=== PATIENT | male | born 1975 ===

== ENCOUNTER 2016-07-11 11:52 | Emergency (ER) | payer SELFPAY ==
--- NOTE | 2016-07-30 15:51 | ER ---
ADMIT: 07/11/2016 RM/LOC: ER [facility] MR#: [id number] [place], [place] [id number] VAISHALI MAYNARD [address] [place] [address] Emergency Room Report SEX: M AGE: 41 : 1975 DATE: 07/11/2016 ADDENDUM: This patient was working outside, he leaned against a wooden fence and a large splinter entered his right forearm. On physical exam, he does have a splinter that is in his right forearm that is approximately 4 cm in length. I infiltrated around the area with bupivacaine with epi and was able to pull it out making a small incision with an 11 blade. I did write a prescription for Keflex and tramadol and I did irrigate it out. He is current on his tetanus shot. DIAGNOSIS: Splinter in his right arm. LAURA Lilly / Pedro Luis Luciano MD / modl JOB #: [id number] CC: Pedro Luis Luciano MD, Attending Physician Richi Cage MD, Family Physician
== END 2016-07-11 12:55 | disposition home or self-care (01) ==
LOC: ER 11:52
PROC: 0HCDXZZ Extirpation of Matter from Right Lower Arm Skin, External Approach (ICD-10-PCS; principal; 2016-07-11)
DX: S50.851A Superficial foreign body of right forearm, initial encounter (principal); F17.210 Nicotine dependence, cigarettes, uncomplicated; W45.8XXA Other foreign body or object entering through skin, initial encounter; Y92.69 Other specified industrial and construction area as the place of occurrence of the external cause